=== PATIENT | female | born 1950 | race Caucasian/White ===

== ENCOUNTER 2022-07-28 23:22 | Inpatient (IN) | payer MEDICARE, MEDICAID, SELFPAY ==
[2022-07-28 23:24] VITALS: BP 136/103; PULSE 120; RESP 20; TEMP 37.2; O2SAT 90; BMI 29.2
[2022-07-28 23:33] VITALS: PULSE 122; RESP 20
--- NOTE | 2022-07-28 23:35 | XRR_ITS ---
PROCEDURE INFORMATION: Exam: XR Chest Exam date and time: 07/28/2022 11:38 PM Age: 72 years old Clinical indication: Shortness of breath; Right-sided; Patient HX: From shelter for RT side chest pain and SOB TECHNIQUE: Imaging protocol: Radiologic exam of the chest. Views: 1 view. COMPARISON: No relevant prior studies available. FINDINGS: Lungs: Allowing for patient positioning and portable technique, no significant findings. No consolidation. Pleural spaces: Unremarkable. No pleural effusion. No pneumothorax. Heart/Mediastinum: Unremarkable. No cardiomegaly. Bones/joints: Unremarkable. XR/XR chest 1V portable [id number] IMPRESSION: Unremarkable
[2022-07-28 23:49] LABS: Basophils # 0.1 10^3/uL (0.0-0.1); Basophils % 0.3 %; Eosinophils # 0.1 10^3/uL (0.0-0.8); Eosinophils % 0.5 %; Hemoglobin 13.4 g/dL (11.5-15.3); Lymphocytes # 1.9 10^3/uL (0.8-4.8); Mean Corpuscular HGB Conc 30.5 g/dL (30.0-36.0); Mean Corpuscular Hemoglobin 27.4 pg (28.0-34.0); Monocytes # 0.9 10^3/uL (0.2-0.9); Monocytes % 4.4 %; Neutrophils # 16.27 10^3/uL (1.8-7.7); Neutrophils % 84.1 %; Nucleated Red Blood Cells % 0 %; Platelet Count 296 10^3/cmm (130-400); Red Blood Count 4.89 10^6/uL (4.1-5.3); Red Cell Distribution Width 16.1 % (12.1-15.1); White Blood Count 19.4 10^3/uL (4.0-10.0)
[2022-07-28 23:58] VITALS: BP 135/103; PULSE 121; RESP 29; O2SAT 86
[2022-07-29] VITALS (21 sets, daily range): BP systolic 122–139; BP diastolic 53–107; PULSE 86–121; RESP 12–28; TEMP 36.6–36.8; O2SAT 86–97; BMI 29.2
[2022-07-29] MEDS: acetaminophen 500 mg Tablet 1000 MG PO (00:04)
--- NOTE | 2022-07-29 00:09 | ED_ITS ---
HPI - SOB/Dyspnea General: Chief Complaint: ER Hold Stated Complaint: SOB/Chest Pain Time Seen by Provider: 07/28/22 23:23 Source: patient and EMS Mode of arrival: EMS Limitations: no limitations History of Present Illness: HPI Narrative: 72-year-old female who is here from long-term she has a history of COPD states she been having increasing shortness of breath along with a cough patient states that her cough is worsened and is productive she does have rales here patient's requiring 4 L of oxygen here states she typically is not on oxygen at the long-term no known fever denies any pain. Associated symptoms: Deny abdominal pain, chest pain, fever(s), nausea or vomiting Review of Systems Const: Denies: fever(s), chills, body aches or change in appetite Eyes: Denies: blurry vision or eye discomfort ENMT: Denies: throat pain or dental pain Card: Denies: chest pain Resp: Reports: dyspnea and productive cough GI: Denies: abdominal pain, nausea, vomiting or diarrhea : Denies: dysuria Musc: Denies: neck pain or back pain Skin/Breast: Denies: rash Neuro: Denies: headache(s) Psych: Denies: depression Luis/Lymph: Denies: easy bruising All/Imm: Denies: urticaria PFSH ED PFSH: Medical History COPD (chronic obstructive pulmonary disease) Diabetes Psoriasis Surgical History Surgical history unknown Family History Denies family history of Family history of premature coronary artery disease Social History Smoking and tobacco status: former smoker Physical Exam Const: COMMON NORMALS: patient oriented x3 GENERAL APPEARANCE: in distress HENMT: COMMON NORMALS: normocephalic and atraumatic HEAD & SCALP: normocephalic and atraumatic Eye: COMMON NORMALS: Equal, round and reactive pupils present and EOMs intact bilaterally PUPIL: Yes Equal, round and reactive pupils present Neck/C-Spine: COMMON NORMALS: full ROM and supple Chest: COMMONS NORMALS: normal inspection of the chest and normal palpation of entire chest wall Resp: COMMON NORMALS: No retractions EFFORT & INSPECTION: Yes tachypneic and Yes labored AUSCULTATION: rales Cardio: COMMON NORMALS: regular rate, regular rhythm and No murmurs present (Cardio) RATE: regular rate RHYTHM: regular rhythm GI: COMMON NORMALS: Normal to inspection, nondistended, normoactive bowel soun ds present, Soft to palpation, non-tender and no masses PALPATION: Yes Soft to palpation Extremity: COMMON NORMALS: normal to inspection and full ROM Neuro: COMMON NORMALS: patient oriented x3, moves all extremities and no focal motor deficits Psych: COMMON NORMALS: mental status grossly normal, Normal thought process present and cooperative THOUGHT PROCESS: Normal thought process present Skin: COMMON NORMALS: no rashes or lesions noted and no wounds GENERAL SKIN EXAM: no rashes or lesions noted Course Vital Signs: Vital signs: Vital Signs Temperature 99.0 F 07/28/22 23:24 Pulse Rate 120 H 07/29/22 00:26 Respiratory Rate 20 H 07/29/22 00:21 Blood Pressure 138/71 07/29/22 00:07 Pulse Oximetry 88 L 07/29/22 00:21 Oxygen Delivery Me thod 07/29/22 00:21 Oxygen Flow Rate 5 07/29/22 00:21 MDM - SOB/Dyspnea Medical Decision Making Patient presents here with cough dyspnea hypoxia patient likely has pneumonia started on antibiotics spoke to hospitalist who will admit. Lab Data 07/28/22 23:40 07/28/22 23:40 Labs/Radiology: Radiology Impressions Chest X-Ray 07/28/22 23:35 IMPRESSION: Unremarkable Laboratory Results WBC 19.4 10^3/uL (4.0-10.0) H 07/28/22 23:40 RBC 4.89 10^6/uL (4.1-5.3) 07/28/22 23:40 Hgb 13.4 g/dL (11.5-15.3) 07/28/22 23:40 Hct 44.0 % (37.0-47.0) 07/28/22 23:40 MCV 90.0 fl (81-99) 07/28/22 23:40 MCH 27.4 pg (28.0-34.0) L 07/28/22 23:40 MCHC 30.5 g/dL (30.0-36.0) 07/28/22 23:40 RDW 16.1 % (12.1-15.1) H 07/28/22 23:40 Plt Count 296 10^3/cmm (130-400) 07/28/22 23:40 MPV 10.0 fL (7.4-10.4) 07/28/22 23:40 Neut % (Auto) 84.1 % 07/28/22 23:40 Lymph % (Auto) 10.0 % 07/28/22 23:40 [place] % (Auto) 4.4 % 07/28/22 23:40 Eos % (Auto) 0.5 % 07/28/22 23:40 Baso % (Auto) 0.3 % 07/28/22 23:40 Neut # (Auto) 16.27 10^3/uL (1.8-7.7) H 07/28/22 23:40 Lymph # (Auto) 1.9 10^3/uL (0.8-4.8) 07/28/22 23:40 [place] # (Auto) 0.9 10^3/uL (0.2-0.9) 07/28/22 23:40 Eos # (Auto) 0.1 10^3/uL (0.0-0.8) 07/28/22 23:40 Baso # (Auto) 0.1 10^3/uL (0.0-0.1) 07/28/22 23:40 Nucleated RBC % (auto) 0 % 07/28/22 23:40 Nucleated RBCs # 0.0 /100WBC 07/28/22 23:40 PT 12.50 SECONDS (12.1-14.9) 07/28/22 23:40 INR 0.91 (0.8-1.2) 07/28/22 23:40 D-Dimer 0.45 ug/mIFEU (0-0.59) 07/28/22 23:40 Sodium 137 mmol/L (136-145) 07/28/22 23:40 Potassium 5.0 mmol/L (3.5-5.1) 07/28/22 23:40 Chloride 97 mmol/L (98-107) L 07/28/22 23:40 Carbon Dioxide 28 mmol/L (22-29) 07/28/22 23:40 Anion Gap 17.0 (5-19) 07/28/22 23:40 BUN 24 mg/dL (8-23) H 07/28/22 23:40 Creatinine 0.8 mg/dL (0.5-0.9) 07/28/22 23:40 GFR Calculation Not Reportable 07/28/22 23:40 Glucose 198 mg/dL (65-115) H 07/28/22 23:40 Calculated Osmolality 294 mOsm/kg (285-295) 07/28/22 23:40 Calcium 9.8 mg/dL (8.5-10.5) 07/28/22 23:40 Total Bilirubin 0.2 mg/dL (0.15-1.2) 07/28/22 23:40 AST 16 U/L (0-32) 07/28/22 23:40 ALT 10 U/L (0-33) 07/28/22 23:40 Alkaline Phosphatase 127 U/L (35-105) H 07/28/22 23:40 NT-Pro-B Natriuret Pep 283 pg/mL (0-125) H 07/28/22 23:40 Total Protein 6.7 g/dL (6.6-8.7) 07/28/22 23:40 Albumin 4.0 g/dL (3.5-5.2) 07/28/22 23:40 Globulin 2.7 g/dL (1.3-4.6) 07/28/22 23:40 Influenza Type A Ag negative (Negative) 07/28/22 23:40 Influenza Type B Ag negative (Negative) 07/28/22 23:40 SARS-CoV-2 Ag (Rapid) negative (Negative) 07/28/22 23:40 Critical Care Time Critical Care Time: Critical Care Time: Yes Total Critical Care Time: 35 Attestation: The high probability of a clinically significant, sudden or life threatening deterioration of the patient's resp system(s) required my full and direct attention, intervention and personal management. The critical care time is as shown. This time is in addition to time spent performing any reported procedures but includes the following: [x] Data and vital sign review and interpretation [x] Patient assessment, examination and intervention [x] Documentation [x] Medication orders and management Discharge Plan Discharge Patient Disposition: Admitted As Inpatient Admit Provider: Nisha Martins Clinical Impression: COPD (chronic obstructive pulmonary disease), Acute respiratory failure with hypoxia Condition: Stable Coding Level of Care Code ED Sports Activities Foul Judge for Chg Fwd Exam Comprehensive
[2022-07-29 00:11] LABS: Influenza A by IFA negative (Negative); Influenza B by IFA negative (Negative)
[2022-07-29] MEDS: ipratropium-albuterol 3 mL Neb INHALATION ×4 (00:18→21:43)
[2022-07-29 00:29] LABS: Slide Review Slide Review Perform
[2022-07-29 00:30] LABS: INR 0.91 (0.8-1.2)
[2022-07-29 00:34] LABS: SARS Covid-2 Antigen negative (Negative)
--- NOTE | 2022-07-29 00:43 | PM.HP ---
Providers/Chief Complaint Chief Complaint: SOB/Chest Pain History of Present Illness Ofelia Stephens is a 72 year old female who is a resident of [facility], history of psoriasis, COPD, 2 L oxygen dependent, diabetes, polio in the past, bedbound presented with chief complaint of worsening of shortness of breath. Patient is stating that for last few days she has been more hypoxic than usual, her oxygen was bumped up to 3 L and now today she was put on 5 L, she has not noticed any fever, she has been noticing right-sided chest pain which she is able to pinpoint towards her right chest area, at the time of evaluation her chest pain is not present, she is on 5 L of oxygen tachycardic, I have requested COVID PCR along D-dimer. In the ER her x-ray did not show any signs of pneumonia, COVID antigen negative. I have requested troponin series as well along EKG. Records were reviewed. She is full code, carries history of chronic kidney disease, diabetes. Review of Systems Const: Reports: chills, body aches and fatigue Eyes: Denies: change in vision ENMT: Denies: throat pain Card: Reports: chest pain and orthopnea Resp: Reports: dyspnea GI: Reports: nausea : Denies: flank pain Musc: Reports: extremity pain Skin/Breast: Reports: rash Neuro: Denies: headache(s) Psych: Reports: anxiety Endo: Denies: polyuria Luis/Lymph: Denies: easy bruising All/Imm: Denies: urticaria Medications/Allergies Allergies Allergy/AdvReac Type Severity Reaction Status Date / Time Penicillins Allergy Unknown Verified 07/28/22 23:33 PFSH Acute PFSH: Medical History COPD (chronic obstructive pulmonary disease) Diabetes Psoriasis Surgical History Surgical history unknown Family History Denies family history of Family history of premature coronary artery disease Social History Smoking and tobacco status: former smoker Vitals/I&O/Wt Last Vital Signs Temp 99.0 F 07/28/22 23:24 Pulse 120 H 07/29/22 00:26 Resp 20 H 07/29/22 00:21 BP 138/71 07/29/22 00:07 Pulse Ox 88 L 07/29/22 00:21 O2 Del Method 07/29/22 00:21 O2 Flow Rate 5 07/29/22 00:21 Weight last 48 hrs Weight 70.307 kg Physical Exam Narrative: Patient is currently on 5 L of oxygen No active respite distress No active chest pain Morbidly obese Bedbound She has psoriasis related rash right flank area Lower extremity nonpitting edema S1, S2 sinus tachycardia Bilateral breath sounds with rhonchi and rails No active wheezing Awake and alert Nonfocal neuro exam Abdomen distended, nontender Data 07/28/22 23:40 07/28/22 23:40 Micro: Microbiology 07/28/22 23:53 Blood Culture - Preliminary Blood SPECIMEN COLLECTED 07/28/22 23:50 Blood Culture - Preliminary Blood SPECIMEN COLLECTED A&P Assessment and plan (1) COPD (chronic obstructive pulmonary disease): (2) Sinus tachycardia: Plan Acute hypoxia related to COPD exacerbation COVID antigen is negative I have requested COVID PCR Patient is sinus tachycardic she also experienced chest pain on the right side, I will request D-dimer and troponin series along EKG DuoNeb every 4 as needed No active wheezing, hold off on steroids She has been given azithromycin and ceftriaxone in the ER however x-ray is unremarkable assisted resident, bedbound, Diabetes Patient takes 10 units of Lantus along sliding scale Full code Cardiac consistent carb diet Resident of [facility] Sinus tachycardia we will give her 500 mL LR bolus to see the response Attestations Medical Necessity Statement*: Anticipating discharge within 48 hours Time Spent in Patient Care: 40 Coding Level of Care Code Acute Roll Off Driver for g Fwd Diagnoses COPD (chronic obstructive pulmonary disease) J44.9 Sinus tachycardia R00.0
[2022-07-29 00:47] LABS: Alanine Aminotransferase 10 U/L (0-33); Alkaline Phosphatase 127 U/L (35-105); Blood Urea Nitrogen 24 mg/dL (8-23); Calcium 9.8 mg/dL (8.5-10.5); Carbon Dioxide 28 mmol/L (22-29); Chloride 97 mmol/L (98-107); Globulin 2.7 g/dL (1.3-4.6); Glucose 198 mg/dL (65-115); NT Pro B Type Natriuretic Pept 283 pg/mL (0-125); Osmolality Calculated 294 mOsm/kg (285-295); Sodium 137 mmol/L (136-145); Total Bilirubin 0.2 mg/dL (0.15-1.2); Total Protein 6.7 g/dL (6.6-8.7)
[2022-07-29 00:48] LABS: Aspartate Amino Transferase 16 U/L (0-32)
[2022-07-29] MEDS: cefTRIAXone 1,000 MG in sodium chloride 0.9% (plus) 50 ML 100 MG IV (00:53)
[2022-07-29 00:55] LABS: D Dimer 0.45 ug/mIFEU (0-0.59)
[2022-07-29] MEDS: azithromycin 500 MG in sodium chloride 0.9% 250 ML 250 MG IV (01:14)
--- NOTE | 2022-07-29 01:51 | ECG_ITS ---
[facility] Test Date: 2022-07-29 Pat Name: Ofelia Stephens Department: Room: ED Gender: Female Calculation Clerk: : 1950 Requested By: Nisha Martins Order Number: [id number] Tyron MD: Angel Reed M.D. Measurements Intervals [place] Rate: 93 P: 67 [place]: 193 QRS: 20 QRSD: 88 T: 59 QT: 348 QTc: 435 Interpretive Statements SINUS RHYTHM No previous ECG available for comparison Electronically Signed On 07-30-2022 13:50:21 LOG RAFTER by Angel Reed M.D. [id number]
--- NOTE | 2022-07-29 02:03 | CTR_ITS ---
PROCEDURE INFORMATION: Exam: CT Chest Without Contrast; Diagnostic Exam date and time: 07/29/2022 3:37 AM Age: 72 years old Clinical indication: Shortness of breath; Patient HX: Persistent hypoxia. History of copd. TECHNIQUE: Imaging protocol: Diagnostic computed tomography of the chest without contrast. Radiation optimization: All CT scans at this facility use at least one of these dose optimization techniques: automated exposure control; mA and/or kV adjustment per patient size (includes targeted exams where dose is matched to clinical indication); or iterative reconstruction. COMPARISON: CR (CHEST, ) 07/28/2022 11:38 PM RADIATION DOSE METRICS: Total DLP (mGy-cm): 327.13 FINDINGS: Trachea: The trachea appears unremarkable. Fluid is seen in the left mainstem bronchus extending into the left lower lobe bronchi. Lungs: There are normal lung volumes. Mild centrilobular emphysema is seen. Mild bronchovascular thickening and tiny regions of ground-glass opacity are seen in the left upper lobe. Moderate patchy ground-glass opacities with some basilar consolidation are seen in the left lower lobe. Associated small regions of bronchovascular thickening are seen. These findings are suggestive of multifocal pneumonia. Recommend follow-up until complete resolution. There is a left upper lobe apical triangular region of nodular consolidation with central air bronchograms (series 14, images 11 to 16). This measures approximately 1.4 x 2.6 x 2.4 cm. Underlying malignancy cannot be excluded. Recommend short interval follow-up with CT in 3 months. Pleural spaces: No pneumothorax. No pleural effusion. Heart: The heart size is normal. Moderate left coronary arterial atherosclerotic vascular calcifications are seen. No pericardial effusion. Lymph nodes: Some nonspecific subcentimeter prevascular, right paratracheal and aortopulmonic window lymph nodes are seen. Vasculature: No aortic aneurysm. Bones/joints: No acute osseous abnormalities seen. Small degenerative osteophytes and moderate degenerative disc disease changes are seen throughout the thoracic spine. Soft tissues: Unremarkable. Other findings: Small hiatal hernia is seen. CT/CT chest wo con [id number] IMPRESSION: 1. Mild bronchovascular thickening and tiny regions of ground-glass opacity in the left upper lobe. Moderate patchy ground-glass opacities with some basilar consolidation seen in the left lower lobe. Associated small regions of bronchovascular thickening. These findings are suggestive of multifocal pneumonia. Recommend follow-up until complete resolution. Fluid in the left mainstem bronchus, extending into the left lower lobe bronchi. 2. Left upper lobe apical triangular region of nodular consolidation with central air bronchograms (series 14, images 11 to 16). This measures approximately 1.4 x 2.6 x 2.4 cm. Underlying malignancy cannot be excluded. Recommend short interval follow-up with CT in 3 months. 3. Other chronic findings, as noted above.
[2022-07-29 02:25] LABS: Basophils # 0.1 10^3/uL (0.0-0.1); Basophils % 0.3 %; Eosinophils % 0.2 %; Hematocrit 40.9 % (37.0-47.0); Hemoglobin 12.7 g/dL (11.5-15.3); Lymphocytes # 0.8 10^3/uL (0.8-4.8); Lymphocytes % 4.2 %; Mean Corpuscular HGB Conc 31.1 g/dL (30.0-36.0); Mean Corpuscular Hemoglobin 27.3 pg (28.0-34.0); Mean Corpuscular Volume 87.8 fl (81-99); Mean Platelet Volume 9.4 fL (7.4-10.4); Monocytes # 0.9 10^3/uL (0.2-0.9); Monocytes % 4.9 %; Neutrophils % 89.9 %; Nucleated Red Blood Cells % 0 %; Platelet Count 305 10^3/cmm (130-400); Red Blood Count 4.66 10^6/uL (4.1-5.3); Red Cell Distribution Width 16.1 % (12.1-15.1); White Blood Count 18.2 10^3/uL (4.0-10.0)
[2022-07-29 02:37] LABS: Estmated Average Glucose 137; Hemoglobin A1C 6.4 % (4.0-6.0)
[2022-07-29 02:40] LABS: Glucose Point of Care 255 mg/dL (70-110)
[2022-07-29 02:46] LABS: Blood Urea Nitrogen 27 mg/dL (8-23); C Reactive Protein 33.4 mg/L (0.0-4.9); Calcium 9.4 mg/dL (8.5-10.5); Carbon Dioxide 25 mmol/L (22-29); Chloride 101 mmol/L (98-107); Creatinine Clr Calc Pharmacy 51.4118; Glucose 241 mg/dL (65-115); Magnesium 2.2 mg/dL (1.7-2.3); Osmolality Calculated 297 mOsm/kg (285-295); Sodium 137 mmol/L (136-145); Troponin(5th) Baseline 35 ng/L (0-10)
[2022-07-29 02:49] LABS: Anion Gap 15.4 (5-19); Potassium 4.4 mmol/L (3.5-5.1)
[2022-07-29 02:54] LABS: Procalcitonin 0.15 ng/mL (0-0.5)
[2022-07-29] MEDS: heparin 5,000 unit/mL INJ 1 mL 5000 UNIT SUBCUT ×3 (02:57→18:36)
[2022-07-29] MEDS: lactated ringers 500 ML 999 ML IV (02:57)
--- NOTE | 2022-07-29 03:51 | ECG_ITS ---
[facility] Test Date: 2022-07-29 Pat Name: Ofelia Stephens Department: Room: EDIP Gender: Female Qa Developer: : 1950 Requested By: Nisha Martins Order Number: [id number] Tyron MD: Angel Reed M.D. Measurements Intervals [place] Rate: 91 P: 83 VT: 184 QRS: 6 QRSD: 85 T: 62 QT: 362 QTc: 446 Interpretive Statements SINUS RHYTHM POSSIBLE LEFT ATRIAL ENLARGEMENT [-0.1mV P-WAVE IN V1/V2] POSSIBLE ANTERIOR MYOCARDIAL INFARCTION , PROBABLY OLD [30 ms Q WAVE IN V3/V4, OR R < 0.2 mV IN V4] No previous ECG available for comparison Electronically Signed On 07-30-2022 13:55:05 SOFTWARE SALES by Angel Reed M.D. [id number]
[2022-07-29 05:58] LABS: Troponin 5 2HR 40.25 ng/L (0-10)
[2022-07-29 06:10] LABS: Troponin 5 2HR Delta 5.25 ABS# (0-10)
[2022-07-29 07:43] LABS: Glucose Point of Care 186 mg/dL (70-110)
--- NOTE | 2022-07-29 07:51 | ECG_ITS ---
[facility] Test Date: 2022-07-29 Pat Name: Ofelia Stephens Department: Room: EDIP Gender: Female Rental Representative: : 1950 Requested By: Nisha Martins Order Number: [id number] Tyron MD: Angel Reed M.D. Measurements Intervals [place] Rate: 94 P: 81 WV: 193 QRS: 11 QRSD: 85 T: 59 QT: 343 QTc: 431 Interpretive Statements SINUS RHYTHM Compared to ECG 07/29/2022 03:59:26 Myocardial infarct finding no longer present Electronically Signed On 07-30-2022 13:54:53 ANIMAL CARE SPECIALIST by Angel Reed M.D. [email or web address] [id number]
[2022-07-29] MEDS: insulin lispro 100 unit/1 mL SUBCUT ×3 (08:01→18:37)
--- NOTE | 2022-07-29 08:11 | W.ED.GENADLT ---
HPI - General Adult General: Chief complaint: ER Hold Stated complaint: SOB/Chest Pain Time Seen by Provider: 07/28/22 23:23 Source: patient and EMS Mode of arrival: EMS Limitations: no limitations History of Present Illness: see ER note from Dr. Grossman. EKG interpretation note only PFSH ED PFSH: Medical History COPD (chronic obstructive pulmonary disease) Diabetes Psoriasis Surgical History Surgical history unknown Family History Denies family history of Family history of premature coronary artery disease Social History Smoking and tobacco status: former smoker Course Vital Signs: Vital signs: Vital Signs Temperature 99.0 F 07/28/22 23:24 Pulse Rate 96 07/29/22 07:30 Respiratory Rate 16 07/29/22 07:30 Blood Pressure 123/73 07/29/22 07:30 Pulse Oximetry 86 L 07/29/22 07:30 Oxygen Delivery Me thod 07/29/22 07:30 Oxygen Flow Rate 5 07/29/22 07:30 [facility] - General Adult Medical Decision Making Charting only EKG. See previous ER visit note by Dr. Grossman Lab Data 07/29/22 02:20 07/29/22 02:20 Radiology Impressions Chest X-Ray 07/28/22 23:35 IMPRESSION: Unremarkable Chest CT 07/29/22 02:03 IMPRESSION: 1. Mild bronchovascular thickening and tiny regions of ground-glass opacity in the left upper lobe. Moderate patchy ground-glass opacities with some basilar consolidation seen in the left lower lobe. Associated small regions of bronchovascular thickening. These findings are suggestive of multifocal pneumonia. Recommend follow-up until complete resolution. Fluid in the left mainstem bronchus, extending into the left lower lobe bronchi. 2. Left upper lobe apical triangular region of nodular consolidation with central air bronchograms (series 14, images 11 to 16). This measures approximately 1.4 x 2.6 x 2.4 cm. Underlying malignancy cannot be excluded. Recommend short interval follow-up with CT in 3 months. 3. Other chronic findings, as noted above. Laboratory Results WBC 19.4 10^3/uL (4.0-10.0) H 07/28/22 23:40 RBC 4.89 10^6/uL (4.1-5.3) 07/28/22 23:40 Hgb 13.4 g/dL (11.5-15.3) 07/28/22 23:40 Hct 44.0 % (37.0-47.0) 07/28/22 23:40 MCV 90.0 fl (81-99) 07/28/22 23:40 MCH 27.4 pg (28.0-34.0) L 07/28/22 23:40 MCHC 30.5 g/dL (30.0-36.0) 07/28/22 23:40 RDW 16.1 % (12.1-15.1) H 07/28/22 23:40 Plt Count 296 10^3/cmm (130-400) 07/28/22 23:40 MPV 10.0 fL (7.4-10.4) 07/28/22 23:40 Neut % (Auto) 84.1 % 07/28/22 23:40 Lymph % (Auto) 10.0 % 07/28/22 23:40 [place] % (Auto) 4.4 % 07/28/22 23:40 Eos % (Auto) 0.5 % 07/28/22 23:40 Baso % (Auto) 0.3 % 07/28/22 23:40 Neut # (Auto) 16.27 10^3/uL (1.8-7.7) H 07/28/22 23:40 Lymph # (Auto) 1.9 10^3/uL (0.8-4.8) 07/28/22 23:40 [place] # (Auto) 0.9 10^3/uL (0.2-0.9) 07/28/22 23:40 Eos # (Auto) 0.1 10^3/uL (0.0-0.8) 07/28/22 23:40 Baso # (Auto) 0.1 10^3/uL (0.0-0.1) 07/28/22 23:40 Nucleated RBC % (auto) 0 % 07/28/22:40 Nucleated RBCs # 0.0 /100WBC 07/28/22 23:40 PT 12.50 SECONDS (12.1-14.9) 07/28/22 23:40 INR 0.91 (0.8-1.2) 07/28/22 23:40 D-Dimer 0.45 ug/mIFEU (0-0.59) 07/28/22 23:40 Sodium 137 mmol/L (136-145) 07/28/22 23:40 Potassium 5.0 mmol/L (3.5-5.1) 07/28/22 23:40 Chloride 97 mmol/L (98-107) L 07/28/22 23:40 Carbon Dioxide 28 mmol/L (22-29) 07/28/22 23:40 Anion Gap 17.0 (5-19) 07/28/22 23:40 BUN 24 mg/dL (8-23) H 07/28/22 23:40 Creatinine 0.8 mg/dL (0.5-0.9) 07/28/22 23:40 GFR Calculation Not Reportable 07/28/22 23:40 Glucose 198 mg/dL (65-115) H 07/28/22 23:40 Calculated Osmolality 294 mOsm/kg (285-295) 07/28/22 23:40 Calcium 9.8 mg/dL (8.5-10.5) 07/28/22 23:40 Total Bilirubin 0.2 mg/dL (0.15-1.2) 07/28/22 23:40 AST 16 U/L (0-32) 07/28/22 23:40 ALT 10 U/L (0-33) 07/28/22 23:40 Alkaline Phosphatase 127 U/L (35-105) H 07/28/22 23:40 NT-Pro-B Natriuret Pep 283 pg/mL (0-125) H 07/28/22 23:40 Total Protein 6.7 g/dL (6.6-8.7) 07/28/22 23:40 Albumin 4.0 g/dL (3.5-5.2) 07/28/22 23:40 Globulin 2.7 g/dL (1.3-4.6) 07/28/22 23:40 Influenza Type A Ag negative (Negative) 07/28/22 23:40 Influenza Type B Ag negative (Negative) 07/28/22 23:40 SARS-CoV-2 Ag (Rapid) negative (Negative) 07/28/22 23:40 EKG Data EKG 3: I personally reviewed and interpreted this EKG as follows: EKG interpretation date: 07/29/22 EKG interpretation time: 08:11 Interpretation: EKG shows normal sinus rhythm with heart rate of 94. Normal [place] interval, normal QT interval, mild left atrial enlargement. Normal T waves. Normal ST segment. Normal QRS. Normal axis. Normal EKG. Computer generated interpretation: Chest X-Ray 07/28/22 23:35 IMPRESSION: Unremarkable Chest CT 07/29/22 02:03 IMPRESSION: 1. Mild bronchovascular thickening and tiny regions of ground-glass opacity in the left upper lobe. Moderate patchy ground-glass opacities with some basilar consolidation seen in the left lower lobe. Associated small regions of bronchovascular thickening. These findings are suggestive of multifocal pneumonia. Recommend follow-up until complete resolution. Fluid in the left mainstem bronchus, extending into the left lower lobe bronchi. 2. Left upper lobe apical triangular region of nodular consolidation with central air bronchograms (series 14, images 11 to 16). This measures approximately 1.4 x 2.6 x 2.4 cm. Underlying malignancy cannot be excluded. Recommend short interval follow-up with CT in 3 months. 3. Other chronic findings, as noted above. Discharge Plan Discharge Patient Disposition: Admitted As Inpatient Admit Provider: Nisha Martins Clinical Impression: COPD (chronic obstructive pulmonary disease), Acute respiratory failure with hypoxia Condition: Stable Coding Level of Care Code ED [employer] Physical Education Teacher for Joey Womack
--- NOTE | 2022-07-29 09:23 | PC.PHAR ---
PTS MAR FROM [facility] SHOWS METOPROLOL TARTRATE- PT LAST FILL WAS FOR SUCCINATE ER 50- SPOKE TO NURSE NKECHI FROM [facility] AND THEY HAVE BEEN GIVING PT METOPROLOL SUCCINATE ER 50
[2022-07-29 09:47] LABS: Troponin 5 6HR 35.24 ng/L (0-10)
[2022-07-29 09:51] LABS: Troponin 5 6HR Delta 0.24 ng/L (0-12)
[2022-07-29] MEDS: sennosides-docusate Tablet 1 TAB PO (11:16)
--- NOTE | 2022-07-29 11:40 | P.PN_ITS ---
Subjective Subjective: Patient was seen this morning, she is seen in the emergency room awaiting for a bed upstairs, she tells me that she is uncomfortable in the bed, she wants to be repositioned, no chest pain, no palpitations, she does not feel short of breath at rest, no fevers, does have a cough Vitals/I&O/Wt Last Vital Signs Temp 99.0 F 07/28/22 23:24 Pulse 104 H 07/29/22 11:00 Resp 18 07/29/22 11:00 BP 136/95 07/29/22 11:00 Pulse Ox 89 L 07/29/22 11:00 O2 Del Method 07/29/22 11:00 O2 Flow Rate 50 07/29/22 10:23 FiO2 60 07/29/22 10:23 07/28/22 07/29/22 07/29/22 22:59 06:59 14:59 Intake Total 800 / 800 Balance 800 / 800 Weight last 48 hrs Weight 70.307 kg Physical Exam Const: COMMON NORMALS: no acute distress and patient oriented x3 Resp: COMMON NORMALS: normal respiratory effort, No retractions, No use of accessory muscles and clear to auscultation bilaterally AUSCULTATION: clear to auscultation bilaterally Cardio: COMMON NORMALS: regular rate, regular rhythm, S1 normal heart sound present and S2 normal heart sound present RATE: regular rate RHYTHM: regular rhythm HEART SOUNDS: S1 normal heart sound present and S2 normal heart sound present GI: COMMON NORMALS: Normal to inspection, nondistended, normoactive bowel sounds present and non-tender Extremity: COMMON NORMALS: no pedal edema Neuro: COMMON NORMALS: patient oriented x3 Psych: COMMON NORMALS: mental status grossly normal Data 07/29/22 02:20 07/29/22 02:20 Micro: Microbiology 07/28/22 23:53 Blood Culture - Preliminary Blood SPECIMEN COLLECTED 07/28/22 23:50 Blood Culture - Preliminary Blood SPECIMEN COLLECTED A&P Assessment and plan (1) COPD (chronic obstructive pulmonary disease): (2) Sinus tachycardia: (3) Multifocal pneumonia: (4) Pulmonary nodule: Plan Acute hypoxia related to COPD exacerbation COVID, flu negative CT of the chest shows 1. Mild bronchovascular thickening and tiny regions of ground-glass opacity in the left upper lobe. Moderate patchy ground-glass opacities with some basilar consolidation seen in the left lower lobe. Associated small regions of bronchovascular thickening. These findings are suggestive of multifocal pneumonia. Recommend follow-up until complete resolution.? Fluid in the left mainstem bronchus, extending into the left lower lobe bronchi. 2. Left upper lobe apical triangular region of nodular consolidation with central air bronchograms (series 14, images 11 to 16). This measures approximately 1.4 x 2.6 x 2.4 cm. Underlying malignancy cannot be excluded. Recommend short interval follow-up with CT in 3 months. -6-hour troponin 35, delta 0.24, EKG no acute ST-T wave changes, BNP 283 Plan DuoNeb every 4 as needed Budesonide Rocephin and azithromycin Prednisone 40 every 24 hours retirement resident, bedbound, Diabetes Patient takes 10 units of Lantus along sliding scale Full code Cardiac consistent carb diet Resident of [facility] Sinus tachycardia, likely sec to pneumonia, telemetry monitoring Attestations Medical Necessity Statement*: Patient requires hospitalization inpatient, greater than 2 minutes, for multifocal pneumonia, COPD exacerbation Coding Level of Care Code Acute Informatics Manager for g Fwd Diagnoses COPD (chronic obstructive pulmonary disease) J44.9 Sinus tachycardia R00.0 Multifocal pneumonia J18.9 Pulmonary nodule R91.1
[2022-07-29] MEDS: predniSONE 20 mg Tablet 40 MG PO (12:33)
[2022-07-29] MEDS: metoprolol succinate ER (24 HR) 50 mg Tablet PO (12:33)
[2022-07-29 12:42] LABS: Glucose Point of Care 156 mg/dL (70-110)
--- NOTE | 2022-07-29 15:18 | PC.RESP ---
pt unable to give sputum sample at this time
[2022-07-29 17:12] LABS: Glucose Point of Care 234 mg/dL (70-110)
[2022-07-29] MEDS: ammonium lactate lotion 226 gm Btl 1 APPLIC TOPICAL (18:36)
[2022-07-29 20:58] LABS: Glucose Point of Care 190 mg/dL (70-110)
[2022-07-29] MEDS: insulin glargine 100 units/1 mL 10 UNIT SUBCUT (21:17)
[2022-07-29] MEDS: budesonide 0.5 mg/2 mL Neb INHALATION (21:43)
[2022-07-30] VITALS (15 sets, daily range): BP systolic 107–152; BP diastolic 64–84; PULSE 82–107; RESP 17–22; TEMP 36.6–37.1; O2SAT 93–100
[2022-07-30] MEDS: azithromycin 500 MG in sodium chloride 0.9% 250 ML 250 MG IV (00:20)
[2022-07-30] MEDS: cefTRIAXone 1,000 MG in sodium chloride 0.9% (plus) 50 ML 100 MG IV (00:21)
[2022-07-30] MEDS: ipratropium-albuterol 3 mL Neb INHALATION ×6 (00:26→23:36)
[2022-07-30] MEDS: heparin 5,000 unit/mL INJ 1 mL 5000 UNIT SUBCUT ×3 (01:34→18:16)
[2022-07-30 05:37] LABS: Basophils # 0.1 10^3/uL (0.0-0.1); Basophils % 0.3 %; Eosinophils % 0.2 %; Hematocrit 38.1 % (37.0-47.0); Hemoglobin 11.8 g/dL (11.5-15.3); Lymphocytes # 1.3 10^3/uL (0.8-4.8); Lymphocytes % 6.7 %; Mean Corpuscular Hemoglobin 27.3 pg (28.0-34.0); Mean Platelet Volume 9.6 fL (7.4-10.4); Monocytes # 0.6 10^3/uL (0.2-0.9); Neutrophils # 17.66 10^3/uL (1.8-7.7); Neutrophils % 89.2 %; Nucleated Red Blood Cells % 0 %; Platelet Count 278 10^3/cmm (130-400); Red Blood Count 4.33 10^6/uL (4.1-5.3); Red Cell Distribution Width 16.1 % (12.1-15.1); White Blood Count 19.8 10^3/uL (4.0-10.0)
[2022-07-30 05:54] LABS: Blood Urea Nitrogen 25 mg/dL (8-23); Calcium 9.7 mg/dL (8.5-10.5); Carbon Dioxide 27 mmol/L (22-29); Chloride 98 mmol/L (98-107); Glucose 190 mg/dL (65-115); Osmolality Calculated 291 mOsm/kg (285-295); Sodium 136 mmol/L (136-145)
[2022-07-30 06:05] LABS: Anion Gap 14.8 (5-19); Potassium 3.8 mmol/L (3.5-5.1)
[2022-07-30 06:15] LABS: Glucose Point of Care 161 mg/dL (70-110)
[2022-07-30] MEDS: budesonide 0.5 mg/2 mL Neb INHALATION ×2 (07:40→23:36)
--- NOTE | 2022-07-30 07:50 | XRR_ITS ---
PROCEDURE INFORMATION: Exam: XR Chest Exam date and time: 07/30/2022 7:57 AM Age: 72 years old Clinical indication: Shortness of breath; Additional info: SOB TECHNIQUE: Imaging protocol: Radiologic exam of the chest. Views: 1 view. Total images: 1262 COMPARISON: CT chest wo con [id number] 07/29/2022 3:37 AM FINDINGS: Lungs: Left pulmonary opacity is again noted and appears unchanged from the prior exam. Nonspecific opacity in the right lung base, favoring atelectasis or pneumonia. Pleural spaces: There is blunting of the left costophrenic angle, likely indicating a small pleural effusion. Heart/Mediastinum: Heart size is stable when compared to the prior exam. Bones/joints: Osseous structures are unchanged from the prior exam. XR/XR chest 1V portable [id number] IMPRESSION: 1. Left pulmonary opacity is again noted and appears unchanged from the prior exam. 2. There is blunting of the left costophrenic angle, likely indicating a small pleural effusion. 3. Nonspecific opacity in the right lung base, favoring atelectasis or pneumonia.
--- NOTE | 2022-07-30 07:52 | USCV_ITS ---
Ofelia Stephens Age: 72 Gender: F : 1950 Exam Date: 07/30/2022 08:16 Ordering Phys: Dani Yee MD Technologist: EFREN [place] [facility] [place]: dvt PROCEDURES: Venous duplex imaging was performed in bilateral lower extremities. The venous duplex Doppler examination of both lower extremities was performed in the standard fashion. The following venous structures were evaluated: common femoral vein, profunda vein, proximal portion of the greater saphenous vein, superficial femoral vein, and the popliteal vein. In addition, the posterior tibial veins were evaluated. In addition, the posterior tibial and peroneal trunk were evaluated. CONCLUSIONS No evidence of right lower extremity DVT. No evidence of left lower extremity DVT. Reed Bess MD (Electronically Signed) Final Date: 30 July 2022 17:30 S
--- NOTE | 2022-07-30 07:52 | ECG_ITS ---
[facility] Test Date: 2022-07-30 Pat Name: Ofelia Stephens Department: Room: 254 Gender: Female Lawyers: : 1950 Requested By: Dani Yee Order Number: [id number] Tyron MD: Angel Reed M.D. Measurements Intervals [place] Rate: 92 P: 71 ND: 186 QRS: 21 QRSD: 95 T: 56 QT: 357 QTc: 442 Interpretive Statements SINUS RHYTHM Compared to ECG 07/29/2022 08:01:24 No significant changes Electronically Signed On 07-30-2022 13:46:47 CLIENT ADVOCATE by Angel Reed M.D. [email or web address] [email or web address]/[id number]
[2022-07-30] MEDS: insulin lispro 100 unit/1 mL SUBCUT ×2 (08:35→18:16)
[2022-07-30] MEDS: vancomycin 1,000 MG in sodium chloride 0.9% 250 ML 250 MG IV (08:36)
[2022-07-30] MEDS: meropenem 1,000 MG in sodium chloride 0.9% (plus) 50 ML 100 MG IV ×2 (08:37→16:06)
[2022-07-30 08:38] LABS: D Dimer 1.06 ug/mIFEU (0-0.59)
[2022-07-30] MEDS: atorvastatin 40 mg Tablet 20 MG PO (08:38)
[2022-07-30] MEDS: predniSONE 20 mg Tablet 40 MG PO (08:39)
[2022-07-30] MEDS: metoprolol succinate ER (24 HR) 50 mg Tablet PO (08:39)
[2022-07-30] MEDS: sennosides-docusate Tablet 1 TAB PO (08:40)
[2022-07-30 08:47] LABS: Troponin(5th) Baseline 23 ng/L (0-10)
[2022-07-30 08:55] LABS: NT Pro B Type Natriuretic Pept 986 pg/mL (0-125); Procalcitonin 0.93 ng/mL (0-0.5)
[2022-07-30 09:06] LABS: ABG PCO2 44.3 mmHg (35-45); ABG PH Result 7.42 (7.35-7.45); Blood Gas Operator Identificat AMH; Blood Gas Sample Site Brachial, left; Blood Gas Sample Type Arterial; Oxygen Device NC; PO2 ABG 83.4 mmHg (80.0-100.0)
[2022-07-30 09:08] LABS: C Reactive Protein 242.1 mg/L (0.0-4.9)
[2022-07-30] MEDS: FUROsemide 10 mg/mL SDV 10mL 60 MG IVP (09:31)
--- NOTE | 2022-07-30 09:52 | ECG_ITS ---
[facility] Test Date: 2022-07-30 Pat Name: Ofelia Stephens Department: Room: 254 Gender: Female Manager Purchasing: : 1950 Requested By: Dani Yee Order Number: [id number] Tyron MD: Angel Reed M.D. Measurements Intervals [place] Rate: 96 P: 75 GA: 189 QRS: 28 QRSD: 88 T: 55 QT: 336 QTc: 425 Interpretive Statements SINUS RHYTHM Compared to ECG 07/30/2022 08:47:26 No significant changes Electronically Signed On 07-30-2022 13:51:19 CRYSTAL CALIBRATOR by Angel Reed M.D. [email or web address] medical surgical [email or web address] Ringselect medical ohiohealth rehabilitation hospital - dublinNamo Media/store/OM/[id number]
[2022-07-30 10:52] LABS: Glucose Point of Care 107 mg/dL (70-110)
--- NOTE | 2022-07-30 12:02 | PC.CHAP ---
Pastoral Care Encounter/Spiritual Assessment Type of Contact [] Declined technical director visit [] Patient/Family/Request visit [] Outpatient visit [] Follow-up visit [] Physician referral [] Code/Alert [x] Routine visit [] Staff referral [] Actively dying [] Patient sleeping [] Family support [] [] Out of room [] Palliative care [] [] Receiving care in room [] Pre-surgical visit [] Trauma [] Long length of stay [] ICU visit [] Other: Relational/Emotional Strength [x] Patient feels connected with others/family/visitors/staff [] Distress [] Loneliness/isolation [] Abandonment Spirituality of Patient [x] Person of Courtney [x Attends Bahai of their Courtney [x] Believes in Prayer [] Reads Bible or Baptism materials [] There are Spiritual issues to be addressed Network Administrator Interventions x [x] Prayer [x] Active listening [x] Non-anxious presence [] Spiritual/emotional support [] Crisis/trauma care [] Spiritual counseling [] Bereavement support [] Provided bereavement packet [] Provided Bible/devotional materials [] Provided toy/stuffed animal, coloring book to patient or family member [] Provided Communion [] Anointing/[place] [] Salvation [x] Completed spiritual assessment [] Other: Impact on Illness or Injury [] Angry [] Fearful [] Anxious [] Often cries [] Exhaustion [] Unable to work [] Unable to attend lutheran [] Unable to walk/stand [] Unable to read [] Unable to drive [] Unable to eat/drink [] Unable to sleep [] Unable to be with family [] Patient intubated [] Other: Summary Time spent with patient 10 min
[2022-07-30 12:06] LABS: Troponin 5 2HR 22.23 ng/L (0-10)
[2022-07-30 12:08] LABS: Troponin 5 2HR Delta -0.77 ABS# (0-10)
--- NOTE | 2022-07-30 16:20 | PM.PN ---
Subjective Subjective: Patient was seen this morning, she is alert oriented x3, she follows all commands overnight her oxygen requirements increased to heated high flow, she denies any nausea, no vomiting, no chest pain, palpitations, Vitals/I&O/Wt Last Vital Signs Temp 98.5 F 07/30/22 15:20 Pulse 102 H 07/30/22 15:20 Resp 17 07/30/22 15:20 BP 107/80 07/30/22 15:20 Pulse Ox 95 07/30/22 15:20 O2 Del Method 07/30/22 15:20 O2 Flow Rate 30 07/30/22 15:16 FiO2 35 07/30/22 15:16 07/30/22 07/30/22 07/30/22 06:59 14:59 22:59 Intake Total 780 / 780 780 / 780 Output Total 1200 / 1200 Balance -420 / -420 780 / 780 Weight last 48 hrs Weight 75.296 kg Weight 70.307 kg Weight 70.307 kg Physical Exam Const: COMMON NORMALS: no acute distress and patient oriented x3 Resp: COMMON NORMALS: normal respiratory effort, No retractions and No use of accessory muscles AUSCULTATION: crackles Cardio: COMMON NORMALS: regular rate, regular rhythm, S1 normal heart sound present and S2 normal heart sound present RATE: regular rate RHYTHM: regular rhythm HEART SOUNDS: S1 normal heart sound present and S2 normal heart sound present GI: COMMON NORMALS: Normal to inspection, nondistended, normoactive bowel sounds present, Soft to palpation, non-tender and No hepatosplenomegaly present PALPATION: Yes Soft to palpation and Yes No hepatosplenomegaly present Extremity: NARRATIVE EXTREMITY EXAM: 1+ pitting edema bilateral extremity Neuro: COMMON NORMALS: patient oriented x3 Psych: COMMON NORMALS: mental status grossly normal Data 07/30/22 04:58 07/30/22 04:58 Micro: Microbiology 07/28/22 23:53 Blood Culture - Preliminary Blood NEGATIVE TO DATE 07/28/22 23:50 Blood Culture - Preliminary Blood NEGATIVE TO DATE A&P Assessment and plan (1) COPD (chronic obstructive pulmonary disease): (2) Sinus tachycardia: (3) Multifocal pneumonia: (4) Pulmonary nodule: Plan Acute hypoxia related to COPD exacerbation, multifocal pneumonia COVID, flu negative now with increasing oxygen requirements, to heated high flow concerning for fluid overload CT of the chest shows 1. Mild bronchovascular thickening and tiny regions of ground-glass opacity in the left upper lobe. Moderate patchy ground-glass opacities with some basilar consolidation seen in the left lower lobe. Associated small regions of bronchovascular thickening. These findings are suggestive of multifocal pneumonia. Recommend follow-up until complete resolution.? Fluid in the left mainstem bronchus, extending into the left lower lobe bronchi. 2. Left upper lobe apical triangular region of nodular consolidation with central air bronchograms (series 14, images 11 to 16). This measures approximately 1.4 x 2.6 x 2.4 cm. Underlying malignancy cannot be excluded. Recommend short interval follow-up with CT in 3 months. -6-hour troponin 35, delta 0.24, EKG no acute ST-T wave changes, BNP over 900 -Venous ultrasound negative for DVT Plan DuoNeb every 4 as needed Budesonide Broaden antibiotic coverage to vancomycin and cefepime 1 dose Lasix 60 IV push Prednisone 40 every 24 hours [facility] resident, bedbound, Diabetes Patient takes 10 units of Lantus along sliding scale Full code Cardiac consistent carb diet Resident of [facility] Sinus tachycardia, likely sec to pneumonia, telemetry monitoring Plan for today will diurese, broaden antibiotic coverage, venous ultrasound, wean oxygen, monitor respiratory status closely, patient wants to remain a full code Attestations Medical Necessity Statement*: Patient requires hospitalization for acute hypoxia secondary to COPd, fluid overload, multifocal pneumonia Coding Level of Care Code Acute Mid Teacher for Chg Fwd Diagnoses COPD (chronic obstructive pulmonary disease) J44.9 Sinus tachycardia R00.0 Multifocal pneumonia J18.9 Pulmonary nodule R91.1
[2022-07-30 17:02] LABS: Troponin 5 6HR 18.17 ng/L (0-10)
[2022-07-30 17:03] LABS: Troponin 5 6HR Delta -4.83 ng/L (0-12)
[2022-07-30 17:39] LABS: Glucose Point of Care 400 mg/dL (70-110)
[2022-07-30] MEDS: ammonium lactate lotion 226 gm Btl 1 APPLIC TOPICAL (18:15)
[2022-07-30] MEDS: quetiapine 25 mg Tablet PO (18:17)
[2022-07-30] MEDS: insulin glargine 100 units/1 mL 10 UNIT SUBCUT (20:26)
[2022-07-30 21:37] LABS: Glucose Point of Care 298 mg/dL (70-110)
[2022-07-31] VITALS (16 sets, daily range): BP systolic 120–157; BP diastolic 63–70; PULSE 72–100; RESP 16–19; TEMP 36.6–36.8; O2SAT 95–100
[2022-07-31] MEDS: meropenem 1,000 MG in sodium chloride 0.9% (plus) 50 ML 100 MG IV ×3 (00:14→20:19)
--- NOTE | 2022-07-31 00:54 | PC.NURSE ---
The IV in the patients right arm went bad and this nurse put the medication on hold, upon trying to start another IV to administer meds as prescribed the patient is refusing to have anymore IVs placed. This nurse educated the patient of their lab results and explained that it was extremely important to have an IV so that she can get her meds. I attempted to call the doctor without any answer at this time. Patient verbalized understanding that she can not receive any IV meds without access.
--- NOTE | 2022-07-31 02:44 | PC.NURSE ---
The patient does not want her scheduled sub Q Heparin injection. This nurse has educated her multiple times on how important it is to prevent blood clots while in the hospital sitting. The patient verbalized that she understood and still does not want it. This nurse has tried twice since the initial refusal to contact the MD without any response. He is aware that she has been refusing her IV medications and any new IV starts.
[2022-07-31] MEDS: ipratropium-albuterol 3 mL Neb INHALATION ×6 (03:23→23:19)
[2022-07-31 04:56] LABS: Basophils % 0.2 %; Eosinophils % 0.3 %; Hematocrit 33.9 % (37.0-47.0); Hemoglobin 10.6 g/dL (11.5-15.3); Lymphocytes % 15.4 %; Mean Corpuscular HGB Conc 31.3 g/dL (30.0-36.0); Mean Corpuscular Hemoglobin 27.2 pg (28.0-34.0); Mean Corpuscular Volume 87.1 fl (81-99); Mean Platelet Volume 9.4 fL (7.4-10.4); Monocytes % 7.4 %; Neutrophils # 9.65 10^3/uL (1.8-7.7); Neutrophils % 75.6 %; Nucleated Red Blood Cells % 0 %; Platelet Count 280 10^3/cmm (130-400); Red Blood Count 3.89 10^6/uL (4.1-5.3); White Blood Count 12.8 10^3/uL (4.0-10.0)
[2022-07-31 05:29] LABS: NT Pro B Type Natriuretic Pept 721 pg/mL (0-125); Procalcitonin 0.69 ng/mL (0-0.5)
[2022-07-31 05:41] LABS: Anion Gap 14.5 (5-19); Blood Urea Nitrogen 33 mg/dL (8-23); C Reactive Protein 138.1 mg/L (0.0-4.9); Calcium 9.2 mg/dL (8.5-10.5); Carbon Dioxide 26 mmol/L (22-29); Chloride 104 mmol/L (98-107); Glucose 123 mg/dL (65-115); Magnesium 2.5 mg/dL (1.7-2.3); Osmolality Calculated 301 mOsm/kg (285-295); Potassium 3.5 mmol/L (3.5-5.1); Sodium 141 mmol/L (136-145)
[2022-07-31 06:24] LABS: Glucose Point of Care 125 mg/dL (70-110)
[2022-07-31 06:42] LABS: Adenovirus Not Detected (NOT DETECT); Chlamydia Pneumoniae Not Detected (NOT DETECT); Coronavirus 229E,HKU1,NL63,OC4 Not Detected (NOT DETECT); Human Metapneumovirus Not Detected (NOT DETECT); Human Rhinovirus/Enterovirus Not Detected (NOT DETECT); Influenza A Not Detected (NOT DETECT); Influenza A H1 Not Detected (NOT DETECT); Influenza A H1-2009 Not Detected (NOT DETECT); Influenza A H3 Not Detected (NOT DETECT); Influenza B Not Detected (NOT DETECT); Mycoplasma Pneumoniae Not Detected (NOT DETECT); Parainfluenza Virus Type 1 Not Detected (NOT DETECT); Parainfluenza Virus Type 2 Not Detected (NOT DETECT); Parainfluenza Virus Type 3 Not Detected (NOT DETECT); Parainfluenza Virus Type 4 Not Detected (NOT DETECT); Respiratory Syncytial Virus A Not Detected (NOT DETECT); Respiratory Syncytial Virus B Not Detected (NOT DETECT); SARS-COV-2 Not Detected (NOT DETECT)
--- NOTE | 2022-07-31 07:00 | XRR_ITS ---
PROCEDURE INFORMATION: Exam: XR Chest Exam date and time: 07/31/2022 6:36 AM Age: 72 years old Clinical indication: Shortness of breath; Additional info: SOB TECHNIQUE: Imaging protocol: Radiologic exam of the chest. Views: 1 view. COMPARISON: CR XR chest 1V portable [id number] 07/30/2022 7:57 AM FINDINGS: Lungs: Left lung base atelectasis or other infiltrates which may be seen with pneumonia. Pleural spaces: Unremarkable. No pleural effusion. No pneumothorax. Heart/Mediastinum: Mild cardiomegaly. Bones/joints: No acute fracture. XR/XR chest 1V portable [id number] IMPRESSION: Left lung base atelectasis or other infiltrates which may be seen with pneumonia.
[2022-07-31] MEDS: budesonide 0.5 mg/2 mL Neb INHALATION ×2 (08:02→19:41)
[2022-07-31] MEDS: sennosides-docusate Tablet 1 TAB PO (10:12)
[2022-07-31] MEDS: predniSONE 20 mg Tablet 40 MG PO (10:12)
[2022-07-31] MEDS: ammonium lactate lotion 226 gm Btl 1 APPLIC TOPICAL ×2 (10:12→17:31)
[2022-07-31] MEDS: atorvastatin 40 mg Tablet 20 MG PO (10:13)
[2022-07-31] MEDS: metoprolol succinate ER (24 HR) 50 mg Tablet PO (10:13)
[2022-07-31 10:52] LABS: Glucose Point of Care 207 mg/dL (70-110)
[2022-07-31] MEDS: FUROsemide 10 mg/mL SDV 10mL 60 MG IVP (12:08)
[2022-07-31] MEDS: insulin lispro 100 unit/1 mL SUBCUT ×2 (13:04→18:00)
--- NOTE | 2022-07-31 13:26 | PM.PN ---
Subjective Subjective: Patient was seen this morning, she feels a lot better is on 4 L, she refused IV during the morning, because of the pain, but I was able to convince her to place an IV for IV IV antibiotics and treatment Vitals/I&O/Wt Last Vital Signs Temp 98.1 F 07/31/22 11:45 Pulse 87 07/31/22 11:45 Resp 17 07/31/22 11:45 BP 126/68 07/31/22 11:45 Pulse Ox 96 07/31/22 11:45 O2 Del Method 07/31/22 11:45 O2 Flow Rate 4 07/31/22 11:37 FiO2 35 07/30/22 15:16 07/30/22 07/31/22 07/31/22 22:59 06:59 14:59 Intake Total 50 / 830 900 / 1730 290 / 290 Output Total 1999 550 / 2550 Balance -1950 / -1170 350 / -820 290 / 290 Weight last 48 hrs Weight 73.89 kg Weight 75.296 kg Physical Exam Const: COMMON NORMALS: no acute distress and patient oriented x3 Resp: COMMON NORMALS: normal respiratory effort, No retractions, No use of accessory muscles and clear to auscultation bilaterally AUSCULTATION: clear to auscultation bilaterally Cardio: COMMON NORMALS: regular rate, regular rhythm, S1 normal heart sound present and S2 normal heart sound present RATE: regular rate RHYTHM: regular rhythm HEART SOUNDS: S1 normal heart sound present and S2 normal heart sound present GI: COMMON NORMALS: Normal to inspection, nondistended, normoactive bowel sounds present and non-tender Extremity: NARRATIVE EXTREMITY EXAM: 1+ pitting edema Neuro: COMMON NORMALS: patient oriented x3 Psych: COMMON NORMALS: mental status grossly normal Data 07/31/22 04:36 07/31/22 04:36 Micro: Microbiology 07/30/22 08:40 MRSA Culture - Final Nose A&P Assessment and plan (1) COPD (chronic obstructive pulmonary disease): (2) Sinus tachycardia: (3) Multifocal pneumonia: (4) Pulmonary nodule: (5) Diastolic CHF: (6) Acute respiratory failure with hypoxia: Plan Acute hypoxia related to COPD exacerbation, multifocal pneumonia COVID, flu negative now with increasing oxygen requirements, to heated high flow concerning for fluid overload CT of the chest shows 1. Mild bronchovascular thickening and tiny regions of ground-glass opacity in the left upper lobe. Moderate patchy ground-glass opacities with some basilar consolidation seen in the left lower lobe. Associated small regions of bronchovascular thickening. These findings are suggestive of multifocal pneumonia. Recommend follow-up until complete resolution.? Fluid in the left mainstem bronchus, extending into the left lower lobe bronchi. 2. Left upper lobe apical triangular region of nodular consolidation with central air bronchograms (series 14, images 11 to 16). This measures approximately 1.4 x 2.6 x 2.4 cm. Underlying malignancy cannot be excluded. Recommend short interval follow-up with CT in 3 months. -6-hour troponin 35, delta 0.24, EKG no acute ST-T wave changes, BNP over 900 -Venous ultrasound negative for DVT Plan DuoNeb every 4 as needed Budesonide Broadened antibiotic coverage to vancomycin and meropenem, MRSA nares positive 1 dose Lasix 60 IV push, for diastolic HF exacerbation Prednisone 40 every 24 hours [facility] resident, bedbound, Diabetes Patient takes 10 units of Lantus along sliding scale Full code Cardiac consistent carb diet Resident of [facility] Sinus tachycardia, likely sec to pneumonia, telemetry monitoring Plan for today will diurese, broaden, continue broad-spectrum antibiotic therapy, de-escalate oxygen therapy, potentially discharge in the next 24 to 48 hours Attestations Medical Necessity Statement*: Patient requires hospitalization for acute hypoxia Coding Level of Care Code Acute Food And Beverage Assistant Manager for [facility] Fwd Diagnoses COPD (chronic obstructive pulmonary disease) J44.9 Sinus tachycardia R00.0 Multifocal pneumonia J18.9 Pulmonary nodule R91.1 Diastolic CHF I50.30 Acute respiratory failure with hypoxia J96.01
[2022-07-31] MEDS: mineral oil ENEMA 133 mL PR (15:29)
--- NOTE | 2022-07-31 15:47 | PC.NURSE ---
pt having frequent smears of stool ...digital exam reveals pt rectal valt is full of semi soft stool...dr louis notfied enema ordered...pt unable to hold much of the liquid ..pt assisted to [facility]
[2022-07-31 16:51] LABS: Glucose Point of Care 345 mg/dL (70-110)
[2022-07-31] MEDS: quetiapine 25 mg Tablet PO (17:28)
[2022-07-31] MEDS: heparin 5,000 unit/mL INJ 1 mL 5000 UNIT SUBCUT (17:28)
[2022-07-31] MEDS: vancomycin 1,000 MG in sodium chloride 0.9% 250 ML 250 MG IV (17:57)
[2022-07-31 21:37] LABS: Glucose Point of Care 316 mg/dL (70-110)
[2022-07-31] MEDS: insulin glargine 100 units/1 mL 10 UNIT SUBCUT (21:40)
[2022-08-01] VITALS (18 sets, daily range): BP systolic 122–150; BP diastolic 63–80; PULSE 68–87; RESP 16–19; TEMP 36.4–36.9; O2SAT 95–99
[2022-08-01] MEDS: heparin 5,000 unit/mL INJ 1 mL 5000 UNIT SUBCUT ×3 (01:48→18:02)
[2022-08-01] MEDS: ipratropium-albuterol 3 mL Neb INHALATION ×6 (03:02→23:11)
[2022-08-01] MEDS: meropenem 1,000 MG in sodium chloride 0.9% (plus) 50 ML 100 MG IV ×3 (03:31→20:32)
[2022-08-01 05:31] LABS: Basophils % 0.3 %; Eosinophils % 0.2 %; Hematocrit 36.4 % (37.0-47.0); Hemoglobin 11.6 g/dL (11.5-15.3); Lymphocytes # 1.6 10^3/uL (0.8-4.8); Lymphocytes % 17.7 %; Mean Corpuscular HGB Conc 31.9 g/dL (30.0-36.0); Mean Corpuscular Hemoglobin 27.7 pg (28.0-34.0); Mean Corpuscular Volume 86.9 fl (81-99); Mean Platelet Volume 9.4 fL (7.4-10.4); Monocytes # 0.6 10^3/uL (0.2-0.9); Monocytes % 6.4 %; Neutrophils # 6.46 10^3/uL (1.8-7.7); Neutrophils % 71.8 %; Nucleated Red Blood Cells % 0 %; Platelet Count 301 10^3/cmm (130-400); Red Blood Count 4.19 10^6/uL (4.1-5.3); Red Cell Distribution Width 15.5 % (12.1-15.1)
[2022-08-01 05:58] LABS: Anion Gap 14.3 (5-19); Blood Urea Nitrogen 31 mg/dL (8-23); C Reactive Protein 70.8 mg/L (0.0-4.9); Calcium 9.3 mg/dL (8.5-10.5); Carbon Dioxide 28 mmol/L (22-29); Chloride 98 mmol/L (98-107); Glucose 151 mg/dL (65-115); NT Pro B Type Natriuretic Pept 391 pg/mL (0-125); Osmolality Calculated 293 mOsm/kg (285-295); Potassium 3.3 mmol/L (3.5-5.1); Sodium 137 mmol/L (136-145)
[2022-08-01 06:16] LABS: Glucose Point of Care 124 mg/dL (70-110)
[2022-08-01] MEDS: budesonide 0.5 mg/2 mL Neb INHALATION ×2 (07:57→20:02)
[2022-08-01] MEDS: benzonatate 100 mg Capsule PO (08:25)
[2022-08-01] MEDS: atorvastatin 40 mg Tablet 20 MG PO (09:00)
[2022-08-01] MEDS: potassium chloride ER 20 mEq Tablet 40 MEQ PO (09:00)
[2022-08-01] MEDS: FUROsemide 20 mg Tablet PO (09:00)
[2022-08-01] MEDS: metoprolol succinate ER (24 HR) 50 mg Tablet PO (09:01)
[2022-08-01] MEDS: sennosides-docusate Tablet 1 TAB PO (09:01)
[2022-08-01] MEDS: predniSONE 20 mg Tablet 40 MG PO (09:02)
[2022-08-01] MEDS: ammonium lactate lotion 226 gm Btl 1 APPLIC TOPICAL ×2 (09:05→18:01)
--- NOTE | 2022-08-01 09:24 | PC.SOCIAL ---
Pg 2 IMM Explained to pt Pg 2 IMM. No questions voiced. Provided pt a copy. Initialed, dated, & timed a copy & placed in chart.
[2022-08-01] MEDS: vancomycin 1,000 MG in sodium chloride 0.9% 250 ML 250 MG IV (12:20)
[2022-08-01 12:24] LABS: Glucose Point of Care 171 mg/dL (70-110)
[2022-08-01] MEDS: insulin lispro 100 unit/1 mL SUBCUT ×2 (12:32→18:01)
--- NOTE | 2022-08-01 13:27 | P.PN_ITS ---
Subjective Subjective: Patient was seen this morning she is on 4 L she tells me she feels a lot better, no nausea, no vomiting, still having some degree of shortness of breath Vitals/I&O/Wt Last Vital Signs Temp 98.4 F 08/01/22 11:10 Pulse 87 08/01/22 11:18 Resp 18 08/01/22 11:10 BP 122/77 08/01/22 11:10 Pulse Ox 95 08/01/22 11:10 O2 Del Method 08/01/22 11:10 O2 Flow Rate 3 08/01/22 11:06 FiO2 35 07/30/22 15:16 07/31/22 08/01/22 08/01/22 22:59 06:59 14:59 Intake Total 660 / 1190 690 / 1880 650 / 650 Output Total 1800 / 1800 Balance -1140 / -610 690 / 80 650 / 650 Weight last 48 hrs Weight 73.89 kg Physical Exam Const: COMMON NORMALS: no acute distress and patient oriented x3 Resp: COMMON NORMALS: normal respiratory effort, No retractions, No use of accessory muscles and clear to auscultation bilaterally AUSCULTATION: clear to auscultation bilaterally Cardio: COMMON NORMALS: regular rate, regular rhythm, S1 normal heart sound present and S2 normal heart sound present RATE: regular rate RHYTHM: regular rhythm HEART SOUNDS: S1 normal heart sound present and S2 normal heart sound present GI: COMMON NORMALS: Normal to inspection, nondistended, normoactive bowel sounds present and non-tender Extremity: COMMON NORMALS: no pedal edema Neuro: COMMON NORMALS: patient oriented x3 Psych: COMMON NORMALS: mental status grossly normal Data 08/01/22 05:20 08/01/22 05:20 A&P Assessment and plan (1) COPD (chronic obstructive pulmonary disease): (2) Sinus tachycardia: (3) Multifocal pneumonia: (4) Pulmonary nodule: (5) Diastolic CHF: (6) Acute respiratory failure with hypoxia: Plan Acute hypoxia related to COPD exacerbation, multifocal pneumonia COVID, flu negative Fluid overload has resolved, on [address] of the chest shows 1. Mild bronchovascular thickening and tiny regions of ground-glass opacity in the left upper lobe. Moderate patchy ground-glass opacities with some basilar consolidation seen in the left lower lobe. Associated small regions of bronchovascular thickening. These findings are suggestive of multifocal pneumonia. Recommend follow-up until complete resolution.? Fluid in the left mainstem bronchus, extending into the left lower lobe bronchi. 2. Left upper lobe apical triangular region of nodular consolidation with central air bronchograms (series 14, images 11 to 16). This measures approximately 1.4 x 2.6 x 2.4 cm. Underlying malignancy cannot be excluded. Recommend short interval follow-up with CT in 3 months. -6-hour troponin 35, delta 0.24, EKG no acute ST-T wave changes, BNP over 900 -Venous ultrasound negative for DVT Plan DuoNeb every 4 as needed Budesonide Broadened antibiotic coverage to vancomycin and meropenem, MRSA nares positive Lasix 20 mg p.o. every 24 hours Prednisone 40 every 24 hours halfway resident, bedbound, Diabetes Patient takes 10 units of Lantus along sliding scale Full code Cardiac consistent carb diet Resident of [facility] Sinus tachycardia, likely sec to pneumonia, telemetry monitoring Plan for today hold off diuresis today, continue broad-spectrum antibiotic therapy follow cultures, if remains unremarkable can discharge tomorrow on p.o. antibiotic therapy of note?she does have a triangular region of consolidation, in the left upper lobe she will need to follow-up with pulmonary for this Attestations Medical Necessity Statement*: Patient requires hospitalization for acute COPD exacerbation, multifocal pneumonia Coding Level of Care Code Acute Tucking Machine Operator for Joey Womack Diagnoses COPD (chronic obstructive pulmonary disease) J44.9 Sinus tachycardia R00.0 Multifocal pneumonia J18.9 Pulmonary nodule R91.1 Diastolic CHF I50.30 Acute respiratory failure with hypoxia J96.01
[2022-08-01 16:40] LABS: Glucose Point of Care 329 mg/dL (70-110)
[2022-08-01] MEDS: quetiapine 25 mg Tablet PO (18:02)
--- NOTE | 2022-08-01 18:35 | PC.NURSE ---
pt telle strip shows elevated t wave pt denies chest pain ...skin w/d... pt has has tele strips that look like this yesterday....i spoke to charge nurse edwin and she agrees since pt is asymtomatic and she has had strips like this yesterday that there is no need to do a ekg
[2022-08-01 21:19] LABS: Glucose Point of Care 340 mg/dL (70-110)
[2022-08-01] MEDS: insulin glargine 100 units/1 mL 10 UNIT SUBCUT (21:50)
[2022-08-02] VITALS (10 sets, daily range): BP systolic 135–153; BP diastolic 74–85; PULSE 66–83; RESP 17–20; TEMP 36.5–37; O2SAT 92–100
[2022-08-02] MEDS: heparin 5,000 unit/mL INJ 1 mL 5000 UNIT SUBCUT ×2 (02:01→10:10)
[2022-08-02] MEDS: meropenem 1,000 MG in sodium chloride 0.9% (plus) 50 ML 100 MG IV (04:25)
[2022-08-02 04:50] LABS: Anion Gap 13.6 (5-19); Blood Urea Nitrogen 33 mg/dL (8-23); Calcium 9.6 mg/dL (8.5-10.5); Carbon Dioxide 29 mmol/L (22-29); Chloride 102 mmol/L (98-107); Glucose 184 mg/dL (65-115); Osmolality Calculated 302 mOsm/kg (285-295); Potassium 4.6 mmol/L (3.5-5.1); Sodium 140 mmol/L (136-145)
[2022-08-02] MEDS: vancomycin 1,000 MG in sodium chloride 0.9% 250 ML 250 MG IV (05:58)
--- NOTE | 2022-08-02 06:09 | PC.NURSE ---
Patient reports pain as soon as the IV Vancomycin was started. The IV infusion was immediately stopped.
[2022-08-02 06:16] LABS: Glucose Point of Care 118 mg/dL (70-110)
--- NOTE | 2022-08-02 07:26 | PC.NURSE ---
This nurse educated the patient that they wasted the IV antibiotic solution and had contacted the DR about it. She stated I do not want anymore of it The patient reports pain at the IV site is better now and does not hurt at all anymore.
[2022-08-02] MEDS: ipratropium-albuterol 3 mL Neb INHALATION ×2 (07:51→11:14)
[2022-08-02] MEDS: budesonide 0.5 mg/2 mL Neb INHALATION (07:51)
[2022-08-02] MEDS: sennosides-docusate Tablet 1 TAB PO (08:39)
[2022-08-02] MEDS: atorvastatin 40 mg Tablet 20 MG PO (08:40)
[2022-08-02] MEDS: predniSONE 20 mg Tablet 40 MG PO (08:40)
[2022-08-02] MEDS: metoprolol succinate ER (24 HR) 50 mg Tablet PO (08:40)
[2022-08-02] MEDS: lactulose oral liq 20 gm/30 mL UDC 30 GM PO (10:15)
[2022-08-02 10:23] LABS: Basophils % 0.3 %; Eosinophils % 0.1 %; Hematocrit 36.6 % (37.0-47.0); Lymphocytes # 1.9 10^3/uL (0.8-4.8); Lymphocytes % 19.3 %; Mean Corpuscular HGB Conc 30.1 g/dL (30.0-36.0); Mean Corpuscular Volume 89.7 fl (81-99); Mean Platelet Volume 9.8 fL (7.4-10.4); Monocytes # 0.7 10^3/uL (0.2-0.9); Monocytes % 7.2 %; Neutrophils # 6.52 10^3/uL (1.8-7.7); Neutrophils % 68.1 %; Nucleated Red Blood Cells % 0 %; Platelet Count 348 10^3/cmm (130-400); Red Blood Count 4.08 10^6/uL (4.1-5.3); Red Cell Distribution Width 15.3 % (12.1-15.1); White Blood Count 9.6 10^3/uL (4.0-10.0)
[2022-08-02 11:28] LABS: Glucose Point of Care 204 mg/dL (70-110)
[2022-08-02 11:35] LABS: SARS Covid-2 Antigen negative (Negative)
--- NOTE | 2022-08-02 11:43 | PM.DCS ---
Discharge Providers Date of Admission: 07/29/22 17:31 Date of Discharge: August 02, 2022 Attending Provider at Admission: Nisha Martins MD Attending Provider at Discharge: Gildardo Marshall MD Diagnoses at Discharge Discharge Diagnosis (1) COPD (chronic obstructive pulmonary disease): Status: Acute (2) Sinus tachycardia: Status: Acute (3) Multifocal pneumonia: Status: Acute (4) Pulmonary nodule: Status: Acute (5) Diastolic CHF: Status: Acute (6) Acute respiratory failure with hypoxia: Status: Acute Reason for Visit Reason for Visit: SOB/Chest Pain Hospital Course Hospital Course 72 year old female who is a resident of [facility], history of psoriasis, COPD, 2 L oxygen dependent, diabetes, polio in the past, bedbound presented with chief complaint of worsening of shortness of breath. She was admitted for the management of acute on chronic hypoxia secondary to multifocal pneumonia as well as COPD exacerbation, CT chest without contrast showed?left upper lobe apical triangular region of nodular consolidation with central air bronchograms approximately 1.4 x 2.6 x 2.4 cm. Underlying malignancy cannot be excluded. Blood culture was negative, COVID and flu was negative, MRSA PCR was positive,she was kept on broad-spectrum antibiotics, steroids, supplemental oxygen as needed, DuoNebs, to which she responded fairly well, at the time of discharge she was saturating well on 2 L supplemental oxygen, she was afebrile, hemodynamically stable. She was discharged on p.o. levofloxacin as well as doxycycline, for another 7 days to complete the antibiotic course. She will follow-up with pulmonary as outpatient with repeat CT chest with contrast, as a follow-up evaluation of left upper lobe apical triangular region of nodular consolidation. She has been discharged in stable condition to retirement. Physical Exam HENMT: COMMON NORMALS: normocephalic, atraumatic, hearing grossly normal bilaterally and external ears normal HEAD & SCALP: normocephalic and atraumatic EXTERNAL EAR: Yes external ears normal Resp: COMMON NORMALS: normal respiratory effort, No retractions, No use of accessory muscles and clear to auscultation bilaterally EFFORT & INSPECTION: Yes symmetric chest movement AUSCULTATION: clear to auscultation bilaterally Cardio: COMMON NORMALS: regular rate, regular rhythm, S1 normal heart sound present, S2 normal heart sound present, No gallops present (Cardio), No murmurs present (Cardio), No rub (Cardio) and Peripheral pulses 2+ throughout RATE: regular rate RHYTHM: regular rhythm HEART SOUNDS: S1 normal heart sound present and S2 normal heart sound present PERIPHERAL PULSES: Peripheral pulses 2+ throughout GI: COMMON NORMALS: Normal to inspection, nondistended, normoactive bowel sounds present, Soft to palpation, non-tender, No hepatosplenomegaly present and no masses AUSCULTATION: Yes normoactive bowel sounds PALPATION: Yes Soft to palpation and Yes No hepatosplenomegaly present RECTAL EXAM: deferred Extremity: COMMON NORMALS: no clubbing, cyanosis or edema and no pedal edema Discharge Data Studies Completed and Pending Completed Studies During Hospitalization Category Date Time Status CT chest wo con [id number] Routine Cat Scan 07/29/22 02:03 Completed XR chest 1V portable [id number] Routine Exams 07/31/22 07:00 Completed XR chest 1V portable [id number] Stat Exams 07/28/22 23:35 Completed XR chest 1V portable [id number] Stat Exams 07/30/22 07:50 [place] [id number] Routine Ultrasound 07/30/22 07:52 Completed Pending at discharge Category Date Time Status BMP [Basic Metabolic Panel] AM LABS Lab 08/03/22 04:00 Ordered BMP [Basic Metabolic Panel] AM LABS Lab 08/04/22 04:00 Ordered BMP [Basic Metabolic Panel] AM LABS Lab 08/05/22 04:00 Ordered Blood Culture Stat Lab 07/28/22 23:53 Results Sputum Culture and Gram Stain Stat Lab 07/29/22 08:22 Uncollected Vancomycin Trough Timed Lab 08/02/22 23:00 Ordered Radiology Impressions Chest CT 07/29/22 02:03 IMPRESSION: 1. Mild bronchovascular thickening and tiny regions of ground-glass opacity in the left upper lobe. Moderate patchy ground-glass opacities with some basilar consolidation seen in the left lower lobe. Associated small regions of bronchovascular thickening. These findings are suggestive of multifocal pneumonia. Recommend follow-up until complete resolution. Fluid in the left mainstem bronchus, extending into the left lower lobe bronchi. 2. Left upper lobe apical triangular region of nodular consolidation with central air bronchograms (series 14, images 11 to 16). This measures approximately 1.4 x 2.6 x 2.4 cm. Underlying malignancy cannot be excluded. Recommend short interval follow-up with CT in 3 months. 3. Other chronic findings, as noted above. Chest X-Ray 07/31/22 07:00 IMPRESSION: Left lung base atelectasis or other infiltrates which may be seen with pneumonia. Laboratory Results WBC 9.6 10^3/uL (4.0-10.0) 08/02/22 03:29 RBC 4.08 10^6/uL (4.1-5.3) L 08/02/22 03:29 Hgb 11.0 g/dL (11.5-15.3) L 08/02/22 03:29 Hct 36.6 % (37.0-47.0) L 08/02/22 03:29 MCV 89.7 fl (81-99) 08/02/22 03:29 MCH 27.0 pg (28.0-34.0) L 08/02/22 03:29 MCHC 30.1 g/dL (30.0-36.0) D 08/02/22 03:29 RDW 15.3 % (12.1-15.1) H 08/02/22 03:29 Plt Count 348 10^3/cmm (130-400) 08/02/22 03:29 MPV 9.8 fL (7.4-10.4) 08/02/22 03:29 Neut % (Auto) 68.1 % 08/02/22 03:29 Lymph % (Auto) 19.3 % 08/02/22 03:29 Coleman % (Auto) 7.2 % 08/02/22 03:29 Eos % (Auto) 0.1 % 08/02/22 03:29 Baso % (Auto) 0.3 % 08/02/22 03:29 Neut # (Auto) 6.52 10^3/uL (1.8-7.7) 08/02/22 03:29 Lymph # (Auto) 1.9 10^3/uL (0.8-4.8) 08/02/22 03:29 Coleman # (Auto) 0.7 10^3/uL (0.2-0.9) 08/02/22 03:29 Eos # (Auto) 0.0 10^3/uL (0.0-0.8) 08/02/22 03:29 Baso # (Auto) 0.0 10^3/uL (0.0-0.1) 08/02/22 03:29 Nucleated RBC % (auto) 0 % 08/02/22 03:29 Nucleated RBCs # 0.0 /100WBC 08/02/22 03:29 PT 12.50 SECONDS (12.1-14.9) 07/28/22 23:40 INR 0.91 (0.8-1.2) 07/28/22 23:40 D-Dimer 1.06 ug/mIFEU (0-0.59) H 07/30/22 08:08 Specimen Type Arterial 07/30/22 08:54 Sample Site Brachial, left 07/30/22 08:54 ABG pH 7.42 (7.35-7.45) 07/30/22 08:54 ABG pCO2 44.3 mmHg (35-45) 07/30/22 08:54 ABG pO2 83.4 mmHg (80.0-100.0) 07/30/22 08:54 ABG HCO3 29.0 mmol/L (22-26) H 07/30/22 08:54 ABG Base Excess 4.0 mmol/L (-2.0-2.0) H 07/30/22 08:54 David Test N/a 07/30/22 08:54 Hematocrit 35.0 % (37-47) L 07/30/22 08:54 O2 Delivery Device Nc 07/30/22 08:54 O2 Liters/Min 45.0 % 07/30/22 08:54 FiO2 50.0 % 07/30/22 08:54 Animal Geneticist ID Amh 07/30/22 08:54 Sodium 140 mmol/L (136-145) 08/02/22 03:29 Potassium 4.6 mmol/L (3.5-5.1) 08/02/22 03:29 Chloride 102 mmol/L (98-107) 08/02/22 03:29 Carbon Dioxide 29 mmol/L (22-29) 08/02/22 03:29 Anion Gap 13.6 (5-19) 08/02/22 03:29 BUN 33 mg/dL (8-23) H 08/02/22 03:29 Creatinine 0.7 mg/dL (0.5-0.9) 08/02/22 03:29 GFR Calculation Not Reportable 08/02/22 03:29 Glucose 184 mg/dL (65-115) H 08/02/22 03:29 POC Glucose 204 mg/dL (70-110) H 08/02/22 11:18 Estimat Average Glucose 137 07/29/22 02:20 Hemoglobin A1c 6.4 % (4.0-6.0) H 07/29/22 02:20 Calculated Osmolality 302 mOsm/kg (285-295) H 08/02/22 03:29 Calcium 9.6 mg/dL (8.5-10.5) 08/02/22 03:29 Magnesium 2.5 mg/dL (1.7-2.3) H 07/31/22 04:36 Total Bilirubin 0.2 mg/dL (0.15-1.2) 07/28/22 23:40 AST 16 U/L (0-32) 07/28/22 23:40 ALT 10 U/L (0-33) 07/28/22 23:40 Alkaline Phosphatase 127 U/L (35-105) H 07/28/22 23:40 Troponin T Baseline 23 ng/L (0-10) H 07/30/22 08:08 Troponin T 120 Minute 22.23 ng/L (0-10) H 07/30/22 11:23 Delta Troponin T -0.77 ABS# (0-10) L 07/30/22 11:23 Troponin T Hi Sens 6Hr 18.17 ng/L (0-10) H 07/30/22 15:43 Troponin T Hi Sens 6Hr Delta -4.83 ng/L (0-12) L 07/30/22 15:43 C-Reactive Protein 70.8 mg/L (0.0-4.9) H 08/01/22 05:20 NT-Pro-B Natriuret Pep 391 pg/mL (0-125) H 08/01/22 05:20 Total Protein 6.7 g/dL (6.6-8.7) 07/28/22 23:40 Albumin 4.0 g/dL (3.5-5.2) 07/28/22 23:40 Globulin 2.7 g/dL (1.3-4.6) 07/28/22 23:40 Procalcitonin 0.69 ng/mL (0-0.5) H 07/31/22 04:36 Coronavirus 229E (PCR) Not detected (NOT DETECT) 07/31/22 04:32 Influenza Type A Ag negative (Negative) 07/28/22 23:40 Influenza Type B Ag negative (Negative) 07/28/22 23:40 SARS-CoV-2 (PCR) Not detected (NOT DETECT) 07/31/22 04:32 SARS-CoV-2 Ag (Rapid) negative (Negative) 08/02/22 11:10 Vitals Last Vital Signs Temp 97.7 F 08/02/22 07:45 Pulse 83 08/02/22 11:25 Resp 18 08/02/22 11:17 BP 153/74 08/02/22 07:45 Pulse Ox 96 08/02/22 11:17 O2 Del Method 08/02/22 11:17 O2 Flow Rate 2 08/02/22 11:17 FiO2 35 07/30/22 15:16 Discharge Plan Discharge Patient Disposition: Xfer SNF Condition: Stable Prescriptions: New levofloxacin 750 mg tablet 750 mg PO DAILY 7 Days Qty: 7 0RF doxycycline monohydrate 100 mg capsule 100 mg PO BID Qty: 14 0RF Continued Lantus U-100 Insulin 100 unit/mL solution 10 unit SUBCUT QPM Humulin R Regular U-100 Insuln 100 unit/mL solution See Rx Instructions .ROUTE .COMPLEX Rx Instructions: as directed per sliding scale quetiapine 25 mg tablet 25 mg PO QPM metformin 500 mg tablet 500 mg PO BID Tylenol 325 mg Tablet 650 mg PO QID PRN (Reason: Pain) ipratropium-albuterol 0.5 mg-3 mg(2.5 mg base)/3 mL solution for nebulization 3 ml INHALATION Q4H metoprolol succinate 50 mg tablet extended release 24 hr 50 mg PO DAILY Triad Wound Dressing Paste 1 applic TOPICAL TID lovastatin 10 mg tablet 10 mg PO QPM cyproheptadine 4 mg tablet 4 mg PO TID Milk of Magnesia 400 mg/5 mL Suspension 30 ml PO Q3D PRN (Reason: Constipation) Vitamin C 500 mg Tablet 500 mg PO TID Dulcolax (bisacodyl) 10 mg Suppository 10 mg [place] DAILY PRN (Reason: Constipation) magnesium citrate Solution 150 ml PO DAILY PRN (Reason: Constipation) ammonium lactate 12 % Cream 1 applic TOPICAL BID Dulcolax (bisacodyl) 5 mg Tablet,Delayed Release (Dr/Ec) 20 mg PO DAILY PRN (Reason: Constipation) gabapentin 100 mg capsule 100 mg PO TID alum-mag hydroxide-simeth 200-200-20 mg/5 mL Suspension 30 ml PO DAILY PRN (Reason: Constipation) Rx Instructions: administer between meals and at bedtime Nystop 100,000 unit/gram powder 1 applic TOPICAL DAILY PRN (Reason: Rash) potassium chloride 10 mEq tablet,ER particles/crystals 10 meq PO DAILY zinc sulfate 50 mg zinc (220 mg) Capsule 50 mg PO DAILY Symbicort 160-4.5 mcg/actuation HFA aerosol inhaler 2 puff INHALATION BID [id number] carb-vit K 18 mg iron-400 mcg-500 mg Tablet 1 tab PO DAILY Discontinued valacyclovir 500 mg tablet 500 mg PO DAILY Discharge Orders: Discharge Order (Routine); Ordered 08/02/22 Ordered By: Gildardo Marshall Other Ambulatory Orders: CT chest w con* [id number] (Routine) Timeframe: 2 Weeks Facility: [facility] - Location: Radiology [facility] Ordered By: Gildardo Marshall Referrals: [facility] [Outside] Datar,Leonides Cain MD [Physician] - 2 weeks Patient Instructions: Doxycycline (By mouth), Levofloxacin (By mouth), Heart Failure (GEN), Pneumonia (GEN), Opioid Safety Discharge Attestations Time Spent in Discharge Care*: less than 30 min Quality Metrics Clinical Quality Measures [ No reported AMI, CVA or VTE this stay] Coding Level of Care Code Acute Chg FW DC note Exam Detailed Diagnoses COPD (chronic obstructive pulmonary disease) J44.9 Sinus tachycardia R00.0 Multifocal pneumonia J18.9 Pulmonary nodule R91.1 Diastolic CHF I50.30 Acute respiratory failure with hypoxia J96.01
[2022-08-02] MEDS: insulin lispro 100 unit/1 mL SUBCUT (14:14)
--- NOTE | 2022-08-02 15:24 | PC.NURSE ---
1336 report called to [facility].
--- NOTE | 2022-08-02 15:26 | PC.NURSE ---
1450 EMS here and patient transferred to skilled hursing facility, per cart patient in stable condition. personal belongings with patient and paperwork with transport personal
== END 2022-08-02 14:50 | disposition skilled nursing facility (03) | DRG 193 ==
LOC: ER 23:51 → ER IP 07-29 02:09 → MEDSURG 07-29 11:10
PROVIDERS: Family Medicine; Admitting Provider Internal Medicine; Emergency Provider Emergency Medicine; Visit Provider Internal Medicine
DX: J18.9 Pneumonia, unspecified organism (principal); I50.33 Acute on chronic diastolic (congestive) heart failure; J96.01 Acute respiratory failure with hypoxia; J44.1 Chronic obstructive pulmonary disease with (acute) exacerbation; J44.0 Chronic obstructive pulmonary disease with (acute) lower respiratory infection; E11.22 Type 2 diabetes mellitus with diabetic chronic kidney disease; N18.9 Chronic kidney disease, unspecified; R91.1 Solitary pulmonary nodule; R00.0 Tachycardia, unspecified; L40.9 Psoriasis, unspecified; Z74.01 Bed confinement status; Z22.322 Carrier or suspected carrier of Methicillin resistant Staphylococcus aureus; Z87.891 Personal history of nicotine dependence; Z86.12 Personal history of poliomyelitis; Z79.4 Long term (current) use of insulin
CPT/HCPCS: 36415; 36416; 36600; 71045; 71250; 80048; 80053; 82803; 82962; 83036; 83735; 83880; 84145; 84484; 85025; 85378; 85610; 86140; 87040; 87426; 87635; 87641; 87804; 93005; 93970; 94640; 94664; 94762; 96372; G0378; J0456; J0696; J1644; J1815; J1940; J2185; J3370; J7050; J7120; J7512; J7626